=== PATIENT | male | born 1975 | race Hispanic/Latino ===

== ENCOUNTER 2017-01-28 09:56 | Emergency (ER) | payer SELFPAY ==
[2017-01-28] MEDS ORDERED: Lidocaine 1% w/Epinephrine 1:100K 20 ML VIAL ONE (10:13)
[2017-01-28] MEDS ORDERED: Adacel (T-DAP) 0.5 ML VIAL ONE (10:13)
[2017-01-28] MEDS ORDERED: Bacitracin Zinc 1 Packet ONE (10:13)
== END 2017-01-28 11:37 | disposition home or self-care (01) ==
LOC: NAV ERS 09:56
DX: S61.411A Laceration without foreign body of right hand, initial encounter (principal); Z23 Encounter for immunization; W45.8XXA Other foreign body or object entering through skin, initial encounter
CPT/HCPCS: 12002; 90471; 90715; J2001